=== PATIENT | female | born 1940 | race Caucasian/White ===

== ENCOUNTER 2019-02-09 17:27 | Inpatient (IN) | payer MEDICARE ==
[~2019-02-09] VITALS: Ht 162.6 cm; Wt 78.2 kg
[2019-02-13 07:20] VITALS: BP 122/78
== END 2019-02-13 14:00 | disposition home or self-care (01) | DRG 391 ==
LOC: ED 18:50 → EDIP 18:51 → 3NW 19:59
PROVIDERS: ADMIT Internal Medicine; ATTEND Internal Medicine
DX: K57.20 Diverticulitis of large intestine with perforation and abscess without bleeding (principal); D61.810 Antineoplastic chemotherapy induced pancytopenia; E87.1 Hypo-osmolality and hyponatremia; D69.6 Thrombocytopenia, unspecified; E78.5 Hyperlipidemia, unspecified; E86.0 Dehydration; Z96.651 Presence of right artificial knee joint; C50.912 Malignant neoplasm of unspecified site of left female breast; I10 Essential (primary) hypertension; T45.1X5A Adverse effect of antineoplastic and immunosuppressive drugs, initial encounter; Z82.49 Family history of ischemic heart disease and other diseases of the circulatory system; Z87.891 Personal history of nicotine dependence; Z85.3 Personal history of malignant neoplasm of breast; Z90.710 Acquired absence of both cervix and uterus
CPT/HCPCS: 36415; 80053; 83735; 85025; 85610; 96374; 99285; G0378; J1644; J2543; J1447; J2270; J3475; J7030; J7050